=== PATIENT | male | born 1980 | race Caucasian/White ===

== ENCOUNTER → 2017-10-07 10:23 | Outpatient (CLI) | payer OTHER, SELFPAY ==
[2017-10-07 11:29] LABS: Add Manual Diff / Slide Review NO; Basophils Percent Auto 0.5 % (0-2); Eosinophils Percent Auto 0.4 % (2-4); Hematocrit 47.7 % (41-53); Hemoglobin 16.3 g/dL (13.5-17.5); Lymphocytes Percent Auto 21.1 % (25-40); Mean Corpuscular HGB Conc 34.3 % (30-36); Mean Corpuscular Hemoglobin 29.6 PG (26-34); Mean Corpuscular Volume 86.5 fL (80-100); Monocytes Percent Auto 6.3 % (3-14); Neutrophils Absolute Auto 5300 /uL (3000-5900); Neutrophils Percent Auto 71.7 % (50-75); Platelet Count 278 X10^3/uL (150-400); Red Blood Cell Count 5.52 X10^6/uL (4.5-5.9); Red Cell Distribution Width 13.1 % (11.6-14.8); White Blood Cell Count 7.5 X10^3/uL (4.5-11.0)
[2017-10-07 12:40] LABS: TSH w/ Reflex to FT4 0.69 uIU/mL (0.47-4.68)
[2017-10-13 15:17] LABS: Rapid Plasma Reagin NON-REACTIVE
== END ==
PROVIDERS: Visit Provider Physician Assistant
DX: R22.1 Localized swelling, mass and lump, neck (principal)
CPT/HCPCS: 36415; 84443; 85025; 86592

== ENCOUNTER → 2017-10-14 07:12 | Outpatient (CLI) | payer OTHER, SELFPAY ==
--- NOTE | 2017-10-14 07:14 | DI.US.S_ITS ---
PROCEDURE: US SOFT TISSUE HEAD AND NECK INDICATIONS: ANTERIOR/INFERIOR NECK SWELLING TECHNIQUE: Real-time scanning was performed of the neck region of interest, with image documentation. COMPARISON: None. FINDINGS: In the area of clinically palpable neck swelling involving the anterior inferior neck, no discrete fluid collection or solid mass is identified. No lymphadenopathy seen. IMPRESSION: No sonographically visible etiology of anterior inferior neck swelling. Dictated by: Vishnu Cuevas M.D. on 10/14/2017 at 8:07 Approved by: Vishnu Cuevas M.D. on 10/14/2017 at 8:09
== END ==
PROVIDERS: Visit Provider Physician Assistant
DX: R22.1 Localized swelling, mass and lump, neck (principal)
CPT/HCPCS: 76536

== ENCOUNTER 2024-08-11 09:08 | Emergency (ER) | payer OTHER, SELFPAY ==
[2024-08-11] VITALS (8 sets, daily range): BP systolic 132–163; BP diastolic 80–105; PULSE 58–83; RESP 12–17; TEMP 36.6; O2SAT 99–100; BMI 33.7
--- NOTE | 2024-08-11 09:19 | DI.RAD.S_ITS ---
PROCEDURE: XR CHEST 1V INDICATIONS: chest pain TECHNIQUE: One view of the chest was acquired. COMPARISON: None. FINDINGS: Surgical changes and devices: None. Lungs and pleura: Lungs are clear. No pleural effusions or pneumothorax. Mediastinum: Mediastinal contours appear normal. Heart size is normal. Bones and chest wall: No suspicious bony lesions. Overlying soft tissues appear unremarkable. IMPRESSION: No acute pulmonary process. Dictated by: Amelia Perez M.D. on 08/11/2024 at 9:58 Approved by: Amelia Perez M.D. on 08/11/2024 at 9:59
--- NOTE | 2024-08-11 09:20 | EKG_ITS ---
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
--- NOTE | 2024-08-11 09:21 | ED.CHESTPAIN ---
HPI - Chest Pain General Chief Complaint: Chest Pain Stated Complaint: right pressure under right rib, light headed Time Seen by Provider: 08/11/24 09:21 History of Present Illness HPI narrative: 43-year-old male no known significant past medical history presenting for right upper quadrant abdominal pain, states that he went to the walk-in clinic but was sent here to rule out issues with his gallbladder. He states that these symptoms have been ongoing persistent for the past 2 weeks, states that he has noticed that the pain may increase with eating, he currently has no pain or discomfort, however he states that the pain was a little worse this morning after breakfast cause him to feel a little lightheaded therefore decided come into the ED for further evaluation treatment. He denies any symptoms at this time. Related Data Home Medications Medication Instructions Recorded Confirmed No Known Home Medications 10/07/17 11/05/17 Allergies Allergy/AdvReac Type Severity Reaction Status Date / Time No Known Drug Allergies Allergy Verified 11/05/17 13:37 Review of Systems Review of Systems Narrative: General: Denies fever, chills, weight loss HEENT: Denies headache, eye drainage, eye irritation, head trauma, sore throat, voice change Cardiovascular: Denies any chest pain, palpitations, tachycardia Respiratory: Denies any shortness of breath, cough, wheeze, stridor GI/: Positive right upper abdominal pain, denies nausea, vomiting, diarrhea, bright red blood per rectum, melanotic stools, urinary frequency, urinary retention, dysuria, hematuria MSK: Denies any joint pain, muscle pains, swelling Skin: Denies any rashes, lesions, discoloration Neuro: Denies any headache, lightheadedness, dizziness, fainting, weakness Psych: Denies SI/HI Patient History Medical History (Updated 08/11/24 @ 10:31 by Etienne Carvajal DO) Migraines Surgical History (Updated 12/18/17 @ 15:56 by Latosha Ricketts LPN) No history of previous surgery Family History (Updated 12/18/17 @ 15:59 by Latosha Ricketts LPN) Father No problems noted. Mother H/O thyroidectomy Grandfather Stroke Grandmother Heart disease Social History Smoking Status: Current every day smoker alcohol intake: current (2 beers per day) substance use type: marijuana Exam Narrative Exam Narrative: General: Cooperative, well-developed, not in acute distress HEENT: Normocephalic, atraumatic, PERRLA, normal sclera, eyelids normal Neck: Active full range of motion, atraumatic Chest: Normal to inspection, negative crepitus, no overlying erythema ecchymosis Respiratory: Normal respiratory effort, not in acute respiratory distress, clear to auscultation bilaterally negative cough, wheeze, tachypnea, rhonchi, rales Cardiology: Regular rate rhythm negative gallop, murmur, rubs GI/: No tenderness to palpation, soft, non rigid, normal to inspection, exam deferred MSK: Full active range of motion in all 4 extremities, atraumatic, no tenderness to palpation of any bony prominences Skin: No rashes or lesions noted Neuro: Alert awake oriented x3, moves all 4 extremities spontaneously, cranial nerves intact, able to answer all questions appropriately follows commands appropriately Psych: Cooperative, negative suicidal or homicidal ideations Initial Vital Signs Initial Vital Signs: Vital Signs Temperature 97.9 F 08/11/24 09:12 Pulse Rate 83 08/11/24 09:12 Pulse Oximetry 99 08/11/24 09:12 Oxygen Delivery Method Room Air 08/11/24 09:12 Course Orders Ordered: ED Orders 08/11/24 09:15 Complete Blood Count AUTO DIFF Stat Comprehensive Metabolic Panel Stat Lipase Stat Magnesium Stat NT-proBNP (BNP-Adult 18+) Stat PTT Partial Thromboplastin Allan Stat Prothrombin Time INR Stat Troponin & CK Cardiac Panel Stat 08/11/24 09:19 XR chest 1V Stat EKG-12 Lead Stat 08/11/24 09:23 CT abdomen pelvis w con Stat US abdomen limited Stat Discontinued Medications Aspirin (Aspirin 81 Mg Chew Tab) 324 mg PO NOW ONE Stop: 08/11/24 09:20 Last Admin: 08/11/24 10:17 Dose: 324 mg Documented By: RB Sodium Chloride (Normal Saline 0.9%) 1,000 mls @ 1,000 mls/hr IV BOLUS ONE Stop: 08/11/24 10:22 Last Admin: 08/11/24 10:18 Dose: 1,000 mls/hr Documented By: RB Vital Signs Vital signs: Vital Signs - 8 hr 08/11/24 09:12 08/11/24 09:15 08/11/24 09:15 Temperature 97.9 F Pulse Rate 83 75 Respiratory Rate 15 Blood Pressure 163/105 H Pulse Oximetry 99 99 Oxygen Delivery Method Room Air 08/11/24 09:19 Temperature 97.9 F Pulse Rate 74 Respiratory Rate 17 Blood Pressure 163/105 H Pulse Oximetry 99 Oxygen Delivery Method Room Air MDM - Chest Pain Differential Diagnosis Differential diagnosis: Likely st elevation myocardial infarction, costochondritis, chest pain, biliary colic and other (Electrolyte abnormality, pneumonia) Lab Data 08/11/24 09:15 08/11/24 09:15 Labs: Lab Results 08/11/24 Range/Units 09:15 WBC 7.1 (4.5-11.0) X10^3/uL RBC 5.63 (4.5-5.9) X10^6/uL Hgb 16.4 (13.5-17.5) g/dL Hct 47.7 (41-53) % MCV 84.8 (80-100) fL MCH 29.1 (26-34) PG MCHC 34.4 (30-36) % RDW 13.6 (11.6-14.8) % Plt Count 283 (150-400) X10^3/uL Neut % (Auto) 65.1 (50-75) % Lymph % (Auto) 26.0 (25-40) % [place] % (Auto) 7.6 (3-14) % Eos % (Auto) 0.7 L (2-4) % Baso % (Auto) 0.6 (0-2) % Neut # (Auto) 4600 (3765-1181) /uL Lymph # (Auto) 1800 (1455-4230) /uL [place] # (Auto) 500 (0-900) /uL Eos # (Auto) 100 (0-450) /uL Baso # (Auto) 0 (0-100) /uL PT 11.5 (9.4-12.5) SECONDS INR 1.0 (0.9-1.3) APTT 32 (25.1-36.5) SECONDS Sodium 139 (137-145) mmol/L Potassium 4.0 (3.4-5.1) mmol/L Chloride 99 (98-107) mmol/L Carbon Dioxide 31 (22-32) mmol/L BUN 20 (9-20) mg/dL Creatinine 1.02 (0.66-1.25) mg/dL Estimated GFR > 60 (>60) mL/min BUN/Creatinine Ratio 19.6 (6-22) Glucose 118 H (70-100) mg/dL Calcium 9.7 (8.4-10.2) mg/dL Magnesium 1.9 (1.6-2.3) mg/dL Total Bilirubin 0.7 (0.2-1.3) mg/dL AST 28 (17-59) IU/L ALT 38 (<50) IU/L Alkaline Phosphatase 60 (38-126) U/L Total Creatine Kinase 101 (55-170) U/L Troponin I < 0.012 (0.01-0.034) ng/mL NT-Pro-B Natriuret Pep 20 (<125) pg/mL Total Protein 7.7 (6.3-8.2) g/dL Albumin 4.8 (3.5-5.0) g/dL Globulin 2.9 (1.7-4.1) g/dL Albumin/Globulin Ratio 1.7 (1.0-2.8) Lipase 143 (23-300) U/L Imaging Data Chest x-ray: Radiologist's Impression: [place] [address] XRay Report Signed Patient: Sandeep Quinn MR#: [id number] : 1980 Acct:[id number] Age/Sex: 43 / M Date of Service: 08/11/24 Loc: ED Accession Number: [id number] Procedure: XR chest 1V Ordering Provider: Etienne Carvajal D.O. PROCEDURE: XR CHEST 1V INDICATIONS: chest pain TECHNIQUE: One view of the chest was acquired. COMPARISON: None. FINDINGS: Surgical changes and devices: None. Lungs and pleura: Lungs are clear. No pleural effusions or pneumothorax. Mediastinum: Mediastinal contours appear normal. Heart size is normal. Bones and chest wall: No suspicious bony lesions. Overlying soft tissues appear unremarkable. IMPRESSION: No acute pulmonary process. CT scan - abdomen/pelvis: Radiologist's Impression: [place] [address] CT Scan Report Signed Patient: Sandeep Quinn MR#: [id number] : 1980 Acct:[id number] Age/Sex: 43 / M Date of Service: 08/11/24 Loc: ED Accession Number: [id number] Procedure: CT abdomen pelvis w con Ordering Provider: Etienne Carvajal D.O. PROCEDURE: CT ABDOMEN PELVIS W CON INDICATIONS: RUQ abd pain TECHNIQUE: After the administration of intravenous contrast, axial sections acquired from the lung bases to the pubic symphysis. Coronal and sagittal reformats were performed. For radiation dose reduction, the following was used: automated exposure control, adjustment of mA and/or kV according to patient size. COMPARISON: None. FINDINGS: Image quality: Diagnostic. Lower Chest: No significant findings. ABDOMEN: Liver: No solid mass. Gallbladder: No radiopaque gallstones or wall thickening. Biliary ducts: No biliary dilation. Pancreas: No ductal dilation. Spleen: Size is within normal limits. Adrenal Glands: No adrenal nodules. Kidneys and Ureters: No hydronephrosis. No solid mass. No complex renal cystic lesion which requires follow up. Stomach and Bowel: Question peristalsis versus focal constricting lesion of the rectum. Reference axial image 122 of series 2. Diverticulosis without evidence of acute diverticulitis. Normal appendix. Peritoneum: No abnormal intraperitoneal fluid. No free air. Ventral Wall: No significant ventral hernia. Abdominal Nodes: No retroperitoneal or mesenteric adenopathy by size criteria. Vessels: Aorta and inferior vena cava are normal in size. PELVIS: Pelvic Organs: Unremarkable. Bladder: No bladder wall thickening, accounting for underdistention. Pelvic Nodes: No enlarged lymph nodes. Miscellaneous: No inguinal hernias are seen. Bones: No aggressive osseous abnormality. IMPRESSION: 1. No acute abdominal process noted. 2. Mild diverticulosis. 3. Focal rectal peristalsis versus constricting lesion. US - abdomen: Radiologist's Impression: [place] [address] Ultrasound Report Signed Patient: Sandeep Quinn MR#: [id number] : 1980 Acct:[id number] Age/Sex: 43 / M Date of Service: 08/11/24 Loc: ED Accession Number: [id number] Procedure: US abdomen limited Ordering Provider: Etienne Carvajal D.O. PROCEDURE: US ABDOMEN LIMITED INDICATIONS: RUQ abd pain, gallbladder study TECHNIQUE: Real-time scanning was performed of the abdominal and retroperitoneal organs, with image documentation. COMPARISON: [facility], CT, CT ABDOMEN PELVIS W CON, 08/11/2024, 9:51. FINDINGS: Liver: Liver is normal in size and mildly increased in echotexture. Gallbladder: No gallstones. No wall thickening. No pericholecystic edema. Negative sonographic Gruber's sign. Biliary ducts: Intrahepatic bile ducts are non-dilated. Extrahepatic bile duct caliber measures 3.7 mm. Normal is 6-7 mm or less in diameter, or 10 mm or less post-cholecystectomy. Pancreas: Not well seen secondary to overlying bowel gas. Miscellaneous: No free abdominal fluid. IMPRESSION: 1. No gallstone disease. 2. Mild diffuse hepatic steatosis. ECG Data Interpretation: EKG interpreted ED physician sinus 70 beats per minute QTC 412, normal axis nonspecific ST changes no STEMI MDM Narrative Medical decision making narrative: 43-year-old male without any significant past medical history presenting for evaluation of right upper quadrant abdominal pain intermittent for the past 2 weeks, states that he feels like it does get worse after eating food, at time of evaluation he has no symptoms, he states that this morning after breakfast felt like the pain got worse causing him to feel slightly lightheaded, denies any LOC. At time of evaluation patient without any symptoms. Patient had lab work imaging EKG performed here in the emergency department. EKG nonischemic in nature, chest x-ray without any acute cardiopulmonary abnormalities. Troponin negative, patient without any leukocytosis Chem panel unremarkable. CT scan without acute findings pertaining to patient's symptoms, did note possible focal rectal peristalsis versus constricting lesion at the rectum, however patient stating that he is having normal bowel movements no pain to his lower abdomen. Ultrasound without any signs of cholelithiasis or acute cholecystitis. Patient was instructed to follow up with primary care in outpatient setting he verbalized understanding of this and agrees to being discharged home with outpatient follow up Discharge Plan Departure Patient Disposition: Home Clinical Impression: Abdominal pain Activity Restrictions/Additional Instructions: Please follow up with your primary care doctor Please read the discharge instructions sheet carefully and bring all papers to all doctor follow-up visits, as it may contain information that your doctor may want to see. Disease processes change and evolve, if your symptoms worsen or if you develop any new symptoms that are concerning to you please return for evaluation. Your evaluation today does not show any evidence of any life-threatening/serious illnesses requiring admission to the hospital or surgery. Please follow-up with your doctor for re-evaluation in approximately 1 day. Seek immediate medical attention for any worrisome symptoms. *If you do not have a primary care provider please contact the [facility] Resource line at [phone]. They will ask some questions about your medical history and help get you set up with a doctor in the community. Prescriptions: No Action No Known Home Medications Referrals: Miscellaneous,Doctor, [Non-Staff] - Stand Alone Forms: Patient Portal/API/Survey
[2024-08-11 09:31] LABS: Add Manual Diff / Slide Review NO; Basophils Absolute Auto 0 /uL (0-100); Basophils Percent Auto 0.6 % (0-2); Eosinophils Absolute Auto 100 /uL (0-450); Eosinophils Percent Auto 0.7 % (2-4); Hematocrit 47.7 % (41-53); Hemoglobin 16.4 g/dL (13.5-17.5); Lymphocytes Absolute Auto 1800 /uL (1100-4500); Mean Corpuscular HGB Conc 34.4 % (30-36); Mean Corpuscular Hemoglobin 29.1 PG (26-34); Mean Corpuscular Volume 84.8 fL (80-100); Monocytes Absolute Auto 500 /uL (0-900); Monocytes Percent Auto 7.6 % (3-14); Neutrophils Absolute Auto 4600 /uL (1500-7000); Neutrophils Percent Auto 65.1 % (50-75); Platelet Count 283 X10^3/uL (150-400); Red Blood Cell Count 5.63 X10^6/uL (4.5-5.9); Red Cell Distribution Width 13.6 % (11.6-14.8); White Blood Cell Count 7.1 X10^3/uL (4.5-11.0)
[2024-08-11 09:32] LABS: Prothrombin Time 11.5 SECONDS (9.4-12.5)
[2024-08-11 09:37] LABS: Alanine Aminotransferase 38 IU/L (<50); Albumin 4.8 g/dL (3.5-5.0); Albumin Globulin Ratio 1.7 (1.0-2.8); Alkaline Phosphatase 60 U/L (38-126); Aspartate Aminotransferase 28 IU/L (17-59); BUN Creatinine Ratio 19.6 (6-22); Bilirubin Total 0.7 mg/dL (0.2-1.3); Blood Urea Nitrogen 20 mg/dL (9-20); Calcium 9.7 mg/dL (8.4-10.2); Carbon Dioxide 31 mmol/L (22-32); Chloride 99 mmol/L (98-107); Creatine Kinase 101 U/L (55-170); Estimated Glomerular Filt Rate > 60 mL/min (>60); Globulin 2.9 g/dL (1.7-4.1); Glucose 118 mg/dL (70-100); HEMOLYSIS < 15 (0-50); Lipase 143 U/L (23-300); Magnesium 1.9 mg/dL (1.6-2.3); Sodium 139 mmol/L (137-145); Total Protein 7.7 g/dL (6.3-8.2)
[2024-08-11 09:43] LABS: PTT Partial Thromboplastin Tim 32 SECONDS (25.1-36.5)
[2024-08-11 09:49] LABS: NT-proBNP (BNP-Adult 18+) 20 pg/mL (<125); Troponin I < 0.012 ng/mL (0.01-0.034)
[2024-08-11] MEDS: ASPIRIN 81 MG CHEW TAB 324 MG PO (10:17)
[2024-08-11] MEDS: SODIUM CHLORIDE 0.9% 1,000 ML 1000 ML IV (10:18)
== END 2024-08-11 11:07 | disposition home or self-care (01) ==
PROVIDERS: Emergency Provider Student in an Organized Health Care Education/Training Program
DX: R10.11 Right upper quadrant pain (principal); R07.9 Chest pain, unspecified
CPT/HCPCS: 36415; 71045; 74177; 76705; 80053; 82550; 83690; 83735; 83880; 84484; 85025; 85610; 85730; 93005; 96360; 99284; Q9967